=== PATIENT | female | born 1945 | race Caucasian/White ===

== ENCOUNTER → 2016-08-29 | Outpatient (CLI) | payer MEDICARE, MEDICAID ==
[~2016-08-29] MED LIST: ALBUTEROL2.5 MG/31 INH; BAYER CHILD81 MG PO; CELEXA20 MG PO; COLACE100 MG PO; COREG25 MG PO; CPAP INH; DILAUDID4 MG PO; DOXYCYCLINE HY100 M2 PO; DOXYCYCLINE100 MG PO; DULCOLAX10 MG R; ELIQUIS5 MG PO; ENULOSE UD L30 ML/EA PO; FOLIC ACID1 MG PO; FOSAMAX70 MG PO; FOSRENOL1000 MG PO; FOSRENOL500 MG PO; HYDROCODON-ACE1 EAC4 PO; KEPPRA LIQU100 MG/ML PO; KEPPRA500 M1 PO; KEPPRA500 MG PO; LEVAQUIN500 MG PO; LEVOTHYROXINE100 MCG PO; LIPITOR20 M1 PO; LYRICA50 MG PO; MIDODRINE HCL5 MG PO; MILK OF MA400 MG/5 M PO; MINOCIN100 M2 PO; MINOCIN100 MG; MIRALAX17 GM PO; MORPHINE; MORPHINE S20 MG/5 ML; NEPHROCAPS SOFTG1 MG PO; NICODERM/HABITR21 MG TRANS; OMEPRAZOLE20 M1 PO; ONDANSETRON ODT4 MG SL; PERCOCET 5-3251 EACH PO; PHENERGAN25 M1 PO; PRILOSEC20 MG PO; PROAIR RESPICL90 MCG INH; PROAMATINE5 MG PO; REMERON15 M2 PO; RENAL CAPS SOFTG1 MG PO; RENVELA800 MG PO; REQUIP1 MG PO; REQUIP2 MG PO; REQUIP3 MG PO; SENNA8.6 MG PO; SENSIPAR 30 MG30 MG PO; SYMBICORT 16010.2 GM INH; TEGRETOL PO; TEGRETOL100 MG PO; VITAMIN B-121000 MCG PO; VITAMIN D2000 UNI1 PO; XARELTO15 MG PO; XARELTO20 MG PO; ZOFRAN ODT 4 MG4 MG PO; ZOFRAN ODT8 MG SL; ZOFRAN4 MG PO; ZOLPIDEM TARTRAT5 MG PO; ZYLOPRIM100 MG PO
== END | disposition disaster alternative care site (69) ==
LOC: LFPA 09:02
DX: Z86.79 Personal history of other diseases of the circulatory system (principal)

== ENCOUNTER → 2016-09-21 | Outpatient (CLI) | payer MEDICARE, MEDICAID | END | disposition disaster alternative care site (69) | LOC: GRAD 10:50 | DX: M54.14 Radiculopathy, thoracic region (principal); M48.06 Spinal stenosis, lumbar region; M41.9 Scoliosis, unspecified; M47.894 Other spondylosis, thoracic region; M43.8X6 Other specified deforming dorsopathies, lumbar region; M43.8X4 Other specified deforming dorsopathies, thoracic region | CPT/HCPCS: A9503 ==

== ENCOUNTER → 2016-11-27 | Outpatient (CLI) | payer MEDICARE, MEDICAID ==
--- NOTE | ~2016-11-27 | PUL ---
PATIENT'S NAME: JENNY [facility] AGE: 71 Y [address] ROOM: [place] [address] LOCATION: [facility] ADMIT DATE: 11/27/2016 Pulmonary DISCHARGE DATE: FAMILY PHYSICIAN: Sandi Jackson MD ATTENDING PHYSICIAN: IMELDA MCKEON NAME OF PROCEDURE: Sleep study PROCEDURE DATE: 11/27/2016 TECH: RADHA Melo TEST #: [facility] [place]# [id number] TECHNICAL PARAMETERS: The patient was studied using International 10/20 measuring system. While the patient was studied, there was continuous monitoring of EEG (8 leads), EOG (2 leads), EKG (3 leads), submental EMG (3 leads), tibial (4 leads), respiratory inductive plethysmography (RIP) for thoracic and abdominal effort, oral and nasal airflow with a thermocouple and pressure transducer, and oximetry. The crown and bridge dental lab technician also performed visual and auditory observations noting things like body position, patient's status, breath sounds, artifact, snoring level and patient comments. Continuous sound was monitored using a 2-way speaker system and video monitoring was performed using an infrared camera. Review of the entire study was performed epoch by epoch utilizing a single epoch and multiple epoch capability sleep system. MEDICAL HISTORY: The patient is a 71-year-old woman with daytime sleepiness and snoring. SLEEP STAGE SUMMARY: The patient was studied for 461 minutes of which she slept 324 minutes. She fell asleep in 21 minutes and slept for 70% of the night. Sleep architecture revealed a decline in slow wave and REM sleep. RESPIRATORY SUMMARY: Oxygen saturations ranged from 86-98%. Saturations were below 88% for 45 minutes. Prior to initiating CPAP there were 10 apneas and 33 hypopneas for an apnea/hypopnea index moderately elevated at 19 events per hour. CPAP was initiated and titrated to 16 cm with good control of the respiratory events. EKG SUMMARY: Average heart rate during sleep 74 beats per minute. LIMB MOVEMENT SUMMARY: No clinically relevant periodic limb movements were noted. SUMMARY: Obstructive sleep apnea responsive to CPAP at 16cm. PATIENT'S NAME: [facility] AGE: 71 Y [address] ROOM: [place] [address] LOCATION: [facility] ADMIT DATE: 11/27/2016 Pulmonary DISCHARGE DATE: FAMILY PHYSICIAN: Sandi Jackson MD ATTENDING PHYSICIAN: IMELDA MCKEON PLAN: The patient will receive results from the ordering provider. BRUCE MCNALLY MD /[id number] dtt: 12/09/16 0949 , Bruce Mcnally. dtd: 12/05/16 1637
== END | disposition disaster alternative care site (69) ==
LOC: GSLP 09-20 21:00
DX: G47.30 Sleep apnea, unspecified (principal); G47.10 Hypersomnia, unspecified

== ENCOUNTER → 2016-12-19 | Outpatient (CLI) | payer MEDICARE, MEDICAID ==
--- NOTE | ~2016-12-19 | PUL ---
PATIENT'S NAME: [facility] AGE: 71 Y [address] ROOM: [place] [address] LOCATION: [facility] ADMIT DATE: 12/19/2016 Pulmonary DISCHARGE DATE: FAMILY PHYSICIAN: Sandi Jackson MD ATTENDING PHYSICIAN: MARIA G LAO NAME OF PROCEDURE: Pulmonary Function Test DATE OF PROCEDURE: December 19, 2016 TECH: HOANG Barnett REASON FOR EXAM: COPD PROCEDURES PERFORMED: Spirometry with bronchodilator assessments. Measurement of maximum voluntary ventilation. Measurement of lung volumes. Measurement of diffusion capacity. RESULTS: Spirometry showed pre bronchodilator FVC was 2.24 liters, 117% of predicted; post bronchodilator FVC was 2.42 liters, 126% of predicted. Pre bronchodilator FEV1 was 1.56 liters, 110% of predicted; post-bronchodilator FEV1 was 1.66 liters, 117% of predicted. FEV1/FVC was 70, 92% of predicted. FEF 25-75% was. 0.98 liters/second, 74% of predicted. Maximum voluntary ventilation was 69 liters, 84% of predicted. Peak flow was 5.42 liters, 128% of predicted. These data did not change significantly following inhaled bronchodilator. Lung volumes measured showed total lung capacity was 4.42 liters, 148% of predicted. Functional residual capacity was 3.08 liters, 167% of predicted. Residual volume was 1.58 liters, 129% of predicted. Diffusing capacity not adjusted for hemoglobin was 82% of predicted. The single breath alveolar volume was 3.05 liters which is a poor estimate of the total lung capacity. Flow volume loop pattern is normal. IMPRESSION: The above data and corresponding flow volume curves are most compatible with mild airflow obstruction, which does not respond to an inhaled bronchodilator, with evidence of moderate hyperextension and mild gas trapping, and no gas transfer impairment. MARIA G LAO MD MG/ks PATIENT'S NAME: [facility] AGE: 71 Y [address] ROOM: [place] [address] LOCATION: [facility] ADMIT DATE: 12/19/2016 Pulmonary DISCHARGE DATE: FAMILY PHYSICIAN: Sandi Jackson MD ATTENDING PHYSICIAN: MARIA G LAO /[id number] dtt: 12/29/16 1731 , MARIA G LAO dtd: 12/26/16 1509
== END | disposition disaster alternative care site (69) ==
LOC: GRTH 09:00
DX: J44.9 Chronic obstructive pulmonary disease, unspecified (principal)

== ENCOUNTER → 2016-12-26 | Outpatient (CLI) | payer MEDICARE, MEDICAID | LOC: LNHI 09:52 | DX: I25.5 Ischemic cardiomyopathy (principal); I25.10 Atherosclerotic heart disease of native coronary artery without angina pectoris ==

== ENCOUNTER → 2016-12-30 | Outpatient (CLI) | payer MEDICARE, MEDICAID | END | disposition disaster alternative care site (69) | LOC: GRAD 10:28 | DX: R79.1 Abnormal coagulation profile (principal) | CPT/HCPCS: A9539; A9540 ==

== ENCOUNTER → 2017-01-06 | Day surgery (SDC) | payer MEDICARE, MEDICAID ==
[~2017-01-06] VITALS: Ht 142.2 cm; Wt 48.5 kg
--- NOTE | ~2017-01-06 | OR ---
PATIENT'S NAME: ESTEPHANIE FRANKS I [facility] AGE: 72 Y [address] ROOM: [place] [address] LOCATION: [facility] [place] ADMIT DATE: 01/06/2017 OR/Procedure Report DISCHARGE DATE: FAMILY PHYSICIAN: Sandi Jackosn MD ATTENDING PHYSICIAN: Larry Bradford SURGEON: Larry Bradford DO [employer] DESIGN ENGINEER: DATE OF PROCEDURE: 01/06/2017 PREOPERATIVE DIAGNOSIS: Biventricular ICD pacemaker generator at normal battery depletion. POSTOPERATIVE DIAGNOSIS: Biventricular ICD pacemaker generator at normal battery depletion. PROCEDURE: Exchange of BiV ICD generator. BRIEF HISTORY: Mrs. Franks is a 71-year-old white female with the above-noted diagnosis. She has been brought to the operative suite today for exchange of her device. Previous incision has been marked with surgical marker and then sterilely prepped and draped. After appropriate IV sedation was achieved, 1% lidocaine was used to infiltrate the incision. Incision was opened. Electrocautery used for hemostasis. Leads and generator removed from the pocket. The old generator which is a [employer], model W691TEC, serial #[id number] was removed. The new generator which is a [employer] PROTOTYPE MACHINIST-D was placed, it is a model G141, serial #[id number]. Leads and generator placed back into the pocket. Interrogation showed excellent lead function. Incision was then closed in a layered fashion with 2-0 Vicryl and 4- 0 Monocryl. Dressing was applied. The patient tolerated the procedure well and was transferred to the outpatient recovery in stable condition. LARRY BRADFORD DO MCB/modl /[id number] d: 01/17/17 1331 t: 01/18/17 0759, OPERATIVE SUMMARY
[2017-01-06 07:40] LABS: INR - (THERAPEUTIC) 1.02 (0.92-1.07); PROTIME 10.7 SECONDS (9.8-11.4)
[2017-01-06 07:44] LABS: ANION GAP 10.8 (10.0-19.0); CALCIUM 8.7 mg/dL (8.5-10.5); PHOSPHORUS 3.1 mg/dL (2.5-4.9); POTASSIUM 4.8 mMol/L (3.7-5.1)
[2017-01-06 07:45] LABS: CREATININE 4.9 mg/dL (0.5-1.1)
== END | disposition disaster alternative care site (69) ==
LOC: GPOC 12-23 14:00 → GSDC 12-28 14:00
PROVIDERS: Thoracic Surgery (Cardiothoracic Vascular Surgery)
PROC: 0JH608Z Insertion of Defibrillator Generator into Chest Subcutaneous Tissue and Fascia, Open Approach (ICD-10-PCS; principal; 2017-01-06)
PROC: 0JH60PZ Insertion of Cardiac Rhythm Related Device into Chest Subcutaneous Tissue and Fascia, Open Approach (ICD-10-PCS; 2017-01-06)
PROC: 0JPT0PZ Removal of Cardiac Rhythm Related Device from Trunk Subcutaneous Tissue and Fascia, Open Approach (ICD-10-PCS; 2017-01-06)
DX: Z45.02 Encounter for adjustment and management of automatic implantable cardiac defibrillator (principal); G47.33 Obstructive sleep apnea (adult) (pediatric); E03.9 Hypothyroidism, unspecified; E11.40 Type 2 diabetes mellitus with diabetic neuropathy, unspecified; E11.22 Type 2 diabetes mellitus with diabetic chronic kidney disease; N18.6 End stage renal disease; F51.04 Psychophysiologic insomnia; I25.10 Atherosclerotic heart disease of native coronary artery without angina pectoris; I13.2 Hypertensive heart and chronic kidney disease with heart failure and with stage 5 chronic kidney disease, or end stage renal disease; Z72.0 Tobacco use; Z79.4 Long term (current) use of insulin; Z99.2 Dependence on renal dialysis; I50.9 Heart failure, unspecified
CPT/HCPCS: C1882; J0690; J2001; J7030